=== PATIENT | female | born 1950 | race Caucasian/White ===

== ENCOUNTER 2023-04-05 10:20 | Outpatient (AMB) | payer OTHER, SELFPAY ==
--- NOTE | 2023-04-05 10:24 | MHC.PC.OV ---
Vital Signs 04/05/23 10:33 Height 4 ft 11 in Weight 144 lb BMI 29.1 BP 138/74 Blood Pressure Location Lt brachial Position Sitting Pulse 81 Pulse Source Pulse Oximeter Pulse Oximetry (%) 96 Oxygen Delivery Method Room Air Intake Visit Reasons: NPV- Medication Fuel House Attendant Required: No Allergies meperidine Allergy (Mild, Verified 04/05/23 10:46) Swelling aspirin [ASA] Allergy (Unknown, Verified 04/05/23 10:46) Ulcer Penicillins [PENICILLINS] Allergy (Unknown, Verified 04/05/23 10:46) Diarrhea Medication List - Last Reconciled 04/05/23 by Fredis Barnes PA-C fluoxetine 20 mg PO DAILY temazepam 30 mg PO BEDTIME Tobacco use date assessed: 04/05/23 Fall risk assessment: No Falls in past year Last assessed Fall Risk: 04/05/23 Dental Screening Dental Screen Date: 04/05/23 Did you have a dental visit in the last 12 months?: Yes Did you have a dental problem in the last 6 months where you did not have access to dental care?: No Was dental information given to patient?: Patient has dentist HPI NPV- Medication HPI Details Patient is a 72-year-old female here today for new patient visit. Patient's past medical history significant for moderate generalized anxiety, Previous history of Alcohol use disorder and insomnia Patient previous PCP was at [place] ( Dr Kent) .. She reports her previous PCP recently told her her cholesterol was borderline high and fasting blood sugar was elevated. She has made dietary modifications and has lost weight since. .. Alcohol use disorder-in remission: Has been sober now for 4 years and continues to follow a [facility] a [facility]. . Tobacco dependency: Has drastically reduced her cigarette smoking from 3 packs a day down to 8 cigarettes per day. She is willing to try medication to help her completely quit smoking. Otherwise denies any shortness of breath, though does report having a raspy cough at times. Vaccines: Up-to-date with tetanus, pneumonia, flu and COVID vaccines. [facility] Family History (Updated 04/05/23 @ 11:02 by Fredis Barnes PA-C) Sister H/O lumpectomy Mother Lung cancer Social History Housing: House Alcohol intake: former Year quit: 2019 Patient Tobacco Use Status: Current everyday Tobacco user Cigarette Packs Per Day: 1 Cigarettes Per Day: 8 service: No Current occupational status: retired Cognitive needs: No Hearing needs: No Vision needs: Yes Questionnaire PHQ-9 Over the last 2 weeks, how often have you been bothered by any of the following problems? 1. Little interest or pleasure in doing things: not at all 2. Feeling down, depressed, or hopeless: not at all 3. Trouble falling or staying asleep, or sleeping too much: not at all 4. Feeling tired or having little energy: not at all 5. Poor appetite or overeating: not at all 6. Feeling bad about yourself - or that you are a failure or have let yourself or your family down: not at all 7. Trouble concentrating on things, such as reading the newspaper or watching television: not at all 8. Moving or speaking so slowly that other people could have noticed. Or the opposite - being so fidgety or restless that you have been moving around a lot more than usual: not at all 9. Thoughts that you would be better off or of hurting yourself in some way: not at all Total score: 0 Depression Screening Interpretation: Negative 73114 - PHQ-9 Billing: Yes Source: Developed by Drs. Olu Adams, Kina Estevez, Valentni Morocho and colleagues, with an educational linda from [employer]. Thrive Questionnaire Date Thrive assessed: 04/05/23 I am a: Patient What is your living situation today?: I have a steady place to live Within the past 12 months, did the food you bought not last and you didn't have the money to get more?: Never true Within the past 12 months, did you worry whether your food would run out before you got money to buy more?: Never true Do you have trouble paying for medicines?: No Do you have trouble getting transportation to medical appointments?: No Do you have trouble paying your heating and electricity bill?: No Do you have trouble taking care of your child, family member or friend?: No Do you have trouble with day-to-day activities such as bathing, preparing meals, shopping, managing finances, etc.?: No Are you currently unemployed and looking for a job?: No Are you interested in more education?: No AUDIT C Alcohol Use Questionnaire (AUDIT-C) 1. How often do you have a drink containing alcohol?: Never 2. How many drinks containing alcohol do you have on a typical day when you are drinking?: 1 or 2 3. How often do you have six or more drinks on one occasion?: Never Total Score: 0 FRANCES-7 AMB Questionnaire FRANCES-7 Date FRANCES - 7 assessed: 04/05/23 Feeling nervous, anxious, or on edge: 0 = Not at all Not being able to stop or control worryin = Not at all Worrying too much about different things: 0 = Not at all Trouble relaxin = Not at all Being so restless that it is hard to sit still: 0 = Not at all Becoming easily annoyed or irritable: 0 = Not at all Feeling afraid as if something awful might happen: 0 = Not at all Total FRANCES-7 score (0-4 normal; 5-9 mild; 10-14 moderate; 15-21 severe): 0 Source: Developed by Drs. Olu Adams, Kina Estevez, Valentin Morocho and colleagues, with an educational linda from [employer]. FRANCES-7 Assessment Billing FRANCES-7 Assessment Tool: FRANCES-7 Assessment 19365 Review of Systems Const Denies headache(s) Eyes Denies loss of vision ENT Denies vertigo, Denies dizziness, Denies headache(s) and Denies sore throat Card Denies chest pain, Denies leg edema and Denies lightheadedness Resp Denies cough, Denies hemoptysis and Denies wheezing GI Denies abdominal pain, Denies melena, Denies constipation, Denies diarrhea and Denies vomiting Denies urinary frequency, Denies dysuria and Denies urinary urgency Musc Denies arthralgias, Denies joint swelling, Denies numbness and Denies tingling Neuro Denies Abnormal speech present, Denies behavioral changes, Denies vertigo, Denies dizziness, Denies headache(s), Denies loss of vision, Denies memory loss, Denies numbness and Denies tingling Psych Denies anxiety, Denies behavioral changes, Denies depression, Denies memory loss and Denies panic attacks Deric/Lymph Denies easy bleeding and Denies easy bruising Aller/Immun Denies wheezing Physical exam (Primary Care) Vital Signs: Last Vital Signs Pulse 81 04/05/23 10:33 BP 138/74 04/05/23 10:33 Pulse Ox 96 04/05/23 10:33 Oxygen Delivery Method Room Air 04/05/23 10:33 BMI result Body Mass Index 29.1 Tobacco/Smoking Status: Tobacco use Status Tobacco use date assessed 04/05/23 04/05/23 10:25 Patient Tobacco Use Status Current everyday Tobacco 04/05/23 10:50 PHQ-9: PHQ-9 Score PHQ-9: Total score 0 04/05/23 10:51 Depression Screening Interpretation: Negative Thrive Assessment: Date of Thrive Assessment Date Thrive assessed 04/05/23 04/05/23 10:25 Const General: healthy appearing, no acute distress, alert and awake Nutritional Appearance: well nourished Orientation/consciousness: oriented to person, oriented to place and oriented to time HENMT Ears: TM's normal bilaterally General nose exam: Normal nasal mucous membranes and turbinates present Eyes Conjunctivae: conjunctivae normal Sclerae: sclerae normal Pupils: Equal, round and reactive pupils present Neck Neck: Yes no lymphadenopathy and Yes no JVD Thyroid: Thyroid normal Carotids: no bruits Resp Effort & Inspection: normal respiratory effort and not tachypneic Auscultation: no crackles, no rales, no rhonchi and no wheezes Cardio Rate: regular rate Rhythm: regular rhythm Heart sounds: no murmurs and normal S1 and S2 GI Palpation (GI): Soft to palpation, nontender, no hepatomegaly and no splenomegaly Auscultation: normal bowel sounds Skin General skin exam: no rashes or lesions noted and dry skin Neuro General: oriented to person, oriented to place and oriented to time Cranial nerves: Yes Equal, round and reactive pupils present Speech: No Abnormal speech present Gait exam (Neuro): Normal gait present Motor exam (neuro): no tremor noted Extrem Right upper extremity: full ROM Left upper extremity: full ROM Right lower extremity: full ROM; no edema Left lower extremity: full ROM; no edema Psych Mental Status: mental status grossly normal Speech and movement: Normal speech and movement present Affect: normal affect Attitude: cooperative Thought process: Normal thought process present Assessment and Plan Assessment & Plan (1) FRANCES (generalized anxiety disorder): Code(s): F41.1 - Generalized anxiety disorder Plan: Suffers from anxiety though has been well controlled with SSRI therapy. (2) Alcohol use disorder in remission: Code(s): F10.91 - Alcohol use, unspecified, in remission Plan: Has been sober now for 4 years and continues in a 12 step program. (3) Tobacco dependence: Code(s): F17.200 - Nicotine dependence, unspecified, uncomplicated Plan: Continues to smoke 8 cigarettes per day and does understand she needs to quit. She is willing to try Chantix to help her completely quit smoking. (4) Screening for diabetes mellitus (DM): Code(s): Z13.1 - Encounter for screening for diabetes mellitus (5) Insomnia: Code(s): G47.00 - Insomnia, unspecified Qualifiers: Insomnia type: primary Qualified Code(s): F51.01 - Primary insomnia Plan: Has been using temazepam 30 mg at night for the past several years with good effect on inducing sleep. (6) Impaired glucose metabolism: Code(s): R73.09 - Other abnormal glucose Plan: Was told by previous PCP she had elevated fasting blood sugar. Has made lifestyle changes in dietary modifications and has lost weight. Will recheck fasting blood sugar and A1c. (7) Borderline high cholesterol: Code(s): E78.9 - Disorder of lipoprotein metabolism, unspecified Plan: Again was told by previous PCP she had borderline high cholesterol again has made lifestyle changes and dietary modifications. Will recheck a fasting lipid panel to assure appropriate total cholesterol and LDL Orders: Orders Comprehensive [place]. Panel Fast Today R73.09 - Other abnormal glucose Hemoglobin A1c Today R73.09 - Other abnormal glucose Lipid Panel Today E78.9 - Disorder of lipoprotein metabolism, unspecified Complete Blood Count no Diff Today E78.9 - Disorder of lipoprotein metabolism, unspecified Medications: New varenicline 0.5 mg PO; Take 0.5 mg qd x 3 days, then 0.5 mg b.i.d. x4 days 7 days 11 tabs 0RF F17.200 - Nicotine dependence, unspecified, uncomplicated varenicline 1 mg PO BID 28 days 56 tabs 3RF F17.200 - Nicotine dependence, unspecified, uncomplicated fluoxetine 20 mg PO DAILY 90 days 90 caps 1RF F41.1 - Generalized anxiety disorder temazepam 30 mg PO BEDTIME 30 days 30 caps 3RF F41.1 - Generalized anxiety disorder Coding Level of Care Code New Pt Level 4 (63241) Diagnoses FRANCES (generalized anxiety disorder) F41.1 Alcohol use disorder in remission F10.91 Tobacco dependence F17.200 Screening for diabetes mellitus (DM) Z13.1 Insomnia F51.01 Insomnia type: primary Impaired glucose metabolism R73.09 Borderline high cholesterol E78.9 Additional Codes FRANCES-7 Assessment Billing - FRANCES-7 Assessment Tool: FRANCES-7 Assessment [id number] ([id number])
[2023-04-05 10:33] VITALS: BP 138/74; PULSE 81; O2SAT 96; BMI 29.1
== END 2023-04-05 11:07 | disposition home or self-care (01) ==
PROVIDERS: PCP Physician Assistant; Visit Provider Physician Assistant
DX: F41.1 Generalized anxiety disorder (principal); F10.91 Alcohol use, unspecified, in remission; F17.210 Nicotine dependence, cigarettes, uncomplicated; Z13.1 Encounter for screening for diabetes mellitus; F51.01 Primary insomnia; R73.09 Other abnormal glucose; E78.9 Disorder of lipoprotein metabolism, unspecified
CPT/HCPCS: 99204